=== PATIENT | female | born 1980 | race Native Hawaiian/Other Pacific Islander ===

== ENCOUNTER 2019-07-14 14:46 | Outpatient (CLI) | payer OTHER | END 2019-07-14 20:22 | disposition home or self-care (01) | LOC: MAMMO 14:46 | DX: Z12.31 Encounter for screening mammogram for malignant neoplasm of breast (principal) ==

== ENCOUNTER 2022-03-18 14:18 | Outpatient (CLI) | payer OTHER | END 2022-03-18 19:00 | disposition home or self-care (01) | LOC: MAMMO 14:18 | PROVIDERS: ATTEND Internal Medicine | DX: Z12.31 Encounter for screening mammogram for malignant neoplasm of breast (principal) ==

== ENCOUNTER 2023-11-02 13:33 | Outpatient (CLI) | payer OTHER | END 2023-11-02 19:45 | disposition home or self-care (01) | LOC: MAMMO 13:33 | PROVIDERS: ATTEND Internal Medicine | DX: Z12.31 Encounter for screening mammogram for malignant neoplasm of breast (principal) ==

== ENCOUNTER 2023-11-17 13:22 | Outpatient (CLI) | payer OTHER | END 2023-11-17 19:09 | disposition home or self-care (01) | LOC: MAMMO 13:22 | PROVIDERS: ATTEND Internal Medicine | DX: N64.59 Other signs and symptoms in breast (principal) ==